=== PATIENT | male | born 1960 | race African-American/Black ===

== ENCOUNTER 2022-06-08 10:35 | Emergency (ER) | payer MEDICARE, MEDICAID, SELFPAY ==
[2022-06-08 10:53] VITALS: BP 138/90; PULSE 72; RESP 12; TEMP 36.6; O2SAT 100
--- NOTE | 2022-06-08 11:01 | ED.DENTAL ---
HPI - Dental/Oral General Chief complaint: Dental/Oral Stated complaint: Mouth Pain Time Seen by Provider: 06/08/22 10:55 Source: patient Mode of arrival: ambulatory Limitations: no limitations History of Present Illness HPI Narrative: patient is a 61-year-old male that had a filling on May 24. Patient states a week after filling jaw started to hurt and has been constant since. denies any better taste in mouth or the tooth itself hurting. call dentist and stated they told him they could get him in August. Went to dentist this morning but was not seen due to not having an appointment. Related Data Home Medications Medication Instructions Recorded Confirmed amlodipine 10 mg tablet 10 mg PO DAILY 06/08/22 06/08/22 hydrochlorothiazide 25 mg tablet 25 mg PO DAILY 06/08/22 06/08/22 Allergies Allergy/AdvReac Type Severity Reaction Status Date / Time lisinopril Allergy Diarrhea Verified 06/08/22 10:56 Review of Systems Review of Systems: All systems reviewed & are unremarkable except as noted in HPI and below Constitutional: Constitutional: Denies body ache(s), Denies fever(s), Denies headache(s), Denies malaise and Denies weakness Eyes: Eyes: Denies loss of vision ENT: Denies otalgia, Reports facial pain (jaw), Denies headache(s), Denies nasal discharge, Denies sinus pain and Denies sore throat Cardiovascular: Cardiovascular: Denies chest pain, Denies irregular heart rhythm and Denies dyspnea Respiratory: Respiratory: Denies dyspnea Gastrointestinal: Gastrointestinal: Denies abdominal pain, Denies melena, Denies hematochezia, Denies diarrhea, Denies nausea and Denies vomiting Musculoskeletal: Musculoskeletal: Denies back pain, Denies myalgias and Denies arthralgias Integumentary/Breasts: Skin/Breast: Denies pruritus and Denies rash Neurologic: Denies headache(s), Denies loss of vision and Denies weakness Psychiatric: Psychiatric: Reports no additional psychiatric complaints PMFSH Comments At time of signature, agree with nursing past medical, surgical, social and family history. There is no relevant family history pertinent to the presenting complaint. Exam Const: General: cooperative, healthy appearing, comfortable, no acute distress and well nourished Nutritional Appearance: well nourished Orientation/consciousness: patient oriented x3 Limitations: no limitations HENMT: Head: normal to inspection, normocephalic and atraumatic Ears: hearing grossly normal bilaterally, external ears normal, TM's normal bilaterally and mastoids normal bilaterally Face/Nose/Sinus: Normal external nose present, normal facial exam and face symmetric Face and sinus: normal facial exam and face symmetric Mouth: Yes Normal oral and palatal mucosa present, Yes lip normal, Yes tongue normal, Yes Normal salivary glands and ducts present and Yes moist mucous membranes Eyes: General: appearance normal, both eyes and all related structures Alignment and Position: alignment normal and position normal Periorbital: periorbital findings normal Eyelids: eyelids normal Pupils: Equal, round and reactive pupils present EOM: EOMs intact bilaterally Neck: Neck: normal visual inspection, full ROM, no lymphadenopathy and supple Chest: Chest palpation & inspection: normal inspection of the chest Resp: Effort & Inspection: normal respiratory effort and able to speak in complete sentences Auscultation: clear to auscultation bilaterally Cardio: Rate: regular rate Rhythm: regular rhythm Heart sounds: S1 normal heart sound present and S2 normal heart sound present GI: Inspection: normal to inspection Skin: General skin exam: normal color and no rashes or lesions noted Neuro: General: patient oriented x3 and moves all extremities Cranial nerves: Yes Equal, round and reactive pupils present Speech: normal speech Gait exam (Neuro): Normal gait present Extrem: General: normal to inspection, full ROM and no edema Psych: Appearance: grossly
== END 2022-06-08 11:08 | disposition home or self-care (01) ==
PROVIDERS: Emergency Provider Nurse Practitioner Family; PCP Emergency Medicine
DX: R68.84 Jaw pain (principal)
CPT/HCPCS: 99203; G0463

== ENCOUNTER → 2022-07-22 14:31 | Outpatient (CLI) | payer MEDICARE, MEDICAID, SELFPAY ==
--- NOTE | ~2022-07-22 | XR_ITS ---
EXAM: XR cervical spine 4-5V DATE: 07/22/2022 15:02 HISTORY: tingling fingers and feet for years . COMPARISON: None available. FINDINGS: Craniocervical association and atlantoaxial joint are aligned. No prevertebral soft tissue swelling. Vertebral bodies are aligned. Vertebral body heights are maintained. Normal disc spaces. N ormal facets and posterior elements. IMPRESSION: Normal cervical spine radiograph findings. Reviewed, dictated and finalized at location K.
== END ==
PROVIDERS: PCP Emergency Medicine; Visit Provider Emergency Medicine
DX: R20.2 Paresthesia of skin (principal)
CPT/HCPCS: 72050

== ENCOUNTER 2022-07-30 14:26 | Outpatient (CLI) | payer MEDICARE, MEDICAID, SELFPAY ==
[2022-07-30 14:56] LABS: Basophils Percent Auto 0.4 % (0.2-1.2); Eosinophils Absolute Auto 0.1 K/mm3 (0-0.3); Eosinophils Percent Auto 1.6 % (0-4.4); Hematocrit 46.5 % (42.0-52.0); Hemoglobin 15.7 g/dL (14.0-18.0); Immature Granulocyte Absolute 0.03 K/mm3 (0.00-0.031); Immature Granulocyte Percent A 0.4 % (0-0.5); Lymphocytes Absolute Auto 2.59 K/mm3 (0.9-3.2); Lymphocytes Percent Auto 30.9 % (18.3-44.2); Mean Corpuscular HGB Conc 33.8 g/dl (32-36); Mean Corpuscular Hemoglobin 27.6 pg (26-34); Mean Corpuscular Volume 81.7 fl (80-100); Monocytes Absolute Auto 0.6 K/mm3 (0.1-0.6); Monocytes Percent Auto 6.6 % (2.6-8.5); Neutrophils Absolute Auto 5.1 K/mm3 (1.3-6.7); Neutrophils Percent Auto 60.1 % (45.5-73.1); Platelet Count Result 325 k/mm3 (150-375); Red Blood Count 5.69 M/mm3 (4.6-6.20); Red Cell Distribution Width 14.2 % (11.5-14.5); White Blood Count 8.4 K/mm3 (4.5-10.0)
[2022-07-30 17:05] LABS: Alanine Aminotransferase 49 U/L (6-50); Alkaline Phosphatase 81 U/L (38-126); Anion Gap 10 mmol/L (8-16); Aspartate Amino Transferase 42 U/L (17-59); Bilirubin,Total 1.1 mg/dL (0.2-1.3); Blood Urea Nitrogen 11 mg/dL (9-20); Calcium 9.5 mg/dL (8.4-10.2); Carbon Dioxide 28 mmol/L (22-30); Chloride 100 mmol/L (98-107); Estimated Glomerular Filt Rate > 60; Glucose 100 mg/dL (65-110); Lactate Dehydrogenase 234 U/L (120-246); Potassium 3.2 mmol/L (3.4-5.0); Sodium 138 mmol/L (137-145)
== END 2022-07-30 14:27 | disposition home or self-care (01) ==
LOC: ANHLAB 14:29
PROVIDERS: PCP Emergency Medicine; Visit Provider Internal Medicine Hematology & Oncology
DX: C84.9 Mature T/NK-cell lymphomas, unspecified (principal)
CPT/HCPCS: 36415; 80053; 83615; 85025

== ENCOUNTER 2022-08-08 09:12 | Outpatient (CLI) | payer MEDICARE, MEDICAID, SELFPAY ==
--- NOTE | ~2022-08-08 | PE_ITS ---
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 TECHNIQUE: Blood glucose level was 115 mg/dL. 9.223 mCi of 18-fluorodeoxyglucose (18-FDG) was adminis tered i.v. Low dose computed tomography (CT) images were acquired from the base of the brain to the p roximal thighs for attenuation correction and anatomic localization. Automated exposure control was e mployed. Dose-length product (DLP) was 489 mGy-cm. Positron emission tomography (PET) images were acq uired in the same distribution. COMPARISON: None FINDINGS: Head/neck: There are no pathologically enlarged lymph nodes. Chest: A calcified left lung nodule and calcified left hilar lymph nodes are consistent with old gran ulomatous disease. No pleural effusion. The heart size is normal. No pericardial effusion. There is m ild bilateral gynecomastia. Abdomen/pelvis/proximal thighs: There is diffuse hepatic steatosis. The gallbladder, spleen, pancreas , adrenal glands, and kidneys are normal. There is no urolithiasis. Stool distends the rectosigmoid. There is a large volume of stool in the colon. The appendix is normal. There is a ventral hernia cont aining nonobstructed small bowel. There are no pathologically enlarged lymph nodes. There is no free intraperitoneal fluid. There is mild lumbar spondylosis. IMPRESSION: 1. No evidence of lymphoma. 2. Umbilical hernia containing nonobstructed small bowel. Reviewed, dictated and finalized at location A.
[2022-08-08 09:45] LABS: Glucose Point of Care 115 mg/dl (65-105)
== END 2022-08-08 09:13 | disposition home or self-care (01) ==
PROVIDERS: PCP Emergency Medicine; Visit Provider Internal Medicine Hematology & Oncology
DX: C84.49 Peripheral T-cell lymphoma, not elsewhere classified, extranodal and solid organ sites (principal)
CPT/HCPCS: 78815; A9552

== ENCOUNTER 2022-12-11 12:50 | Outpatient (CLI) | payer MEDICARE, MEDICAID, SELFPAY ==
--- NOTE | 2022-12-11 14:45 | NEURO_ITS ---
Impression: # Complains of numbness in all extremities. History of lymphoma treatment 3 years ago with chemotherapy. # No generalized neuropathy. # No Carpal Tunnel Syndrome. # Right ulnar neuropathy across the elbow. # Normal needle/EMG. # Clinical correlation recommended. problem additionally couldbe related to underlying small fiber neuropathy. Nerve Conduction Studies Anti Sensory Summary Table Stim Site NR Peak (ms) P-T Amp (?V) Site1 Site2 Delta-P (ms) Dist (cm) Vinod (m/s) Left Median Anti Sensory (2-3nd Digit) Wrist 2.8 73.4 Wrist 2-3nd Digit 2.8 14.0 50 Wrist 3.0 72.0 Wrist 2-3nd Digit 2.8 14.0 50 Right Median Anti Sensory (2-3nd Digit) Wrist 3.1 74.9 Wrist 2-3nd Digit 3.1 14.0 45 Wrist 3.1 83.3 Wrist 2-3nd Digit 3.1 14.0 45 Left Radial Anti Sensory (Base 1st Digit) Wrist 2.0 25.8 Wrist Base 1st Digit 2.0 0.0 Right Radial Anti Sensory (Base 1st Digit) Wrist 2.2 10.7 Wrist Base 1st Digit 2.2 0.0 Left Sup Fibular Anti Sensory (Ant Lat Mall) 14 cm 3.6 7.7 14 cm Ant Lat Mall 3.6 16.0 44 Right Sup Fibular Anti Sensory (Ant Lat Mall) 14 cm 3.3 19.3 14 cm Ant Lat Mall 3.3 16.0 48 Left Sural Anti Sensory (Lat Mall) Calf 3.3 17.0 Calf Lat Mall 3.3 16.0 48 Right Sural Anti Sensory (Lat Mall) Calf 3.1 4.9 Calf Lat Mall 3.1 16.0 52 Left Ulnar Anti Sensory (5th Digit) Wrist 2.7 50.7 Wrist 5th Digit 2.7 14.0 52 Right Ulnar Anti Sensory (5th Digit) Wrist 2.8 41.7 Wrist 5th Digit 2.8 14.0 50 Motor Summary Table Stim Site NR Onset (ms) O-P Amp (mV) Site1 Site2 Delta-0 (ms) Dist (cm) Vinod (m/s) Left Median Motor (Abd Poll Brev) Wrist 3.5 4.4 Elbow Wrist 5.5 30.0 55 Elbow 9.0 2.2 Right Median Motor (Abd Poll Brev) Wrist 3.0 6.3 Elbow Wrist 5.3 28.0 53 Elbow 8.3 4.4 Left Peroneal Motor (Vastus Med) Ankle 4.1 2.8 Popit Ankle 9.3 44.0 47 Popit 13.4 2.8 Right Peroneal Motor (Vastus Med) Ankle 4.1 7.6 Popit Ankle 8.2 41.0 50 Popit 12.3 6.5 Left Tibial Motor (Abd Brooks Brev) Ankle 4.4 9.2 Knee Ankle 9.2 44.0 48 Knee 13.6 7.7 Right Tibial Motor (Abd Brooks Brev) Ankle 4.4 9.4 Knee Ankle 9.2 44.0 48 Knee 13.6 7.2 Left Ulnar Motor (Abd Dig Minimi) Wrist 2.5 8.9 A Elbow Wrist 5.9 32.0 54 A Elbow 8.4 8.1 Right Ulnar Motor (Abd Dig Minimi) Wrist 2.7 9.1 A Elbow Wrist 6.3 31.0 49 A Elbow 9.0 7.8 B Elbow Wrist 3.7 20.0 54 B Elbow 6.4 5.5 F Wave Studies NR F-Lat (ms) L-R F-Lat (ms) Left Median (Mrkrs) (Abd Poll Brev) 27.60 0.51 Right Median (Mrkrs) (Abd Poll Brev) 28.11 0.51 Left Peroneal (Mrkrs) (EDB) 52.24 0.43 Right Peroneal (Mrkrs) (EDB) 51.80 0.43 Left Tibial (Mrkrs) (Abd Hallucis) 52.23 0.32 Right Tibial (Mrkrs) (Abd Hallucis) 52.55 0.32 Left Ulnar (Mrkrs) (Abd Dig Min) 28.95 0.08 Right Ulnar (Mrkrs) (Abd Dig Min) 29.03 0.08 EMG Side Muscle Nerve Root Ins Act Fibs Amp Dur Recrt Comment Right 1stDorInt Ulnar C8-T1 Nml Nml Nml Nml Nml Right Ext Indicis Radial (Post Int) C7-8 Nml Nml Nml Nml Nml Right Ext Digitorum Radial (Post Int) C7-8 Nml Nml Nml Nml Nml Right BrachioRad Radial C5-6 Nml Nml Nml Nml Nml Right Pronato
== END 2022-12-11 12:51 | disposition home or self-care (01) ==
LOC: ANHNEURO 12:51
PROVIDERS: PCP Emergency Medicine; Visit Provider Student in an Organized Health Care Education/Training Program
DX: G62.9 Polyneuropathy, unspecified (principal); G56.21 Lesion of ulnar nerve, right upper limb
CPT/HCPCS: 95886; 95913

== ENCOUNTER 2023-02-17 13:07 | Outpatient (CLI) | payer MEDICARE, MEDICAID, SELFPAY ==
[2023-02-17 13:24] LABS: Basophils Percent Auto 0.4 % (0.2-1.2); Eosinophils Absolute Auto 0.2 K/mm3 (0-0.3); Eosinophils Percent Auto 2.5 % (0-4.4); Hematocrit 44.1 % (42.0-52.0); Hemoglobin 14.9 g/dL (14.0-18.0); Immature Granulocyte Absolute 0.03 K/mm3 (0.00-0.031); Immature Granulocyte Percent A 0.4 % (0-0.5); Lymphocytes Absolute Auto 3.05 K/mm3 (0.9-3.2); Lymphocytes Percent Auto 40.1 % (18.3-44.2); Mean Corpuscular HGB Conc 33.8 g/dl (32-36); Mean Corpuscular Hemoglobin 27.9 pg (26-34); Mean Corpuscular Volume 82.4 fl (80-100); Mean Platelet Volume 8.9 fl (7.4-10.4); Monocytes Absolute Auto 0.6 K/mm3 (0.1-0.6); Neutrophils Absolute Auto 3.7 K/mm3 (1.3-6.7); Neutrophils Percent Auto 48.6 % (45.5-73.1); Platelet Count Result 292 k/mm3 (150-375); Red Blood Count 5.35 M/mm3 (4.6-6.20); Red Cell Distribution Width 14.6 % (11.5-14.5); White Blood Count 7.6 K/mm3 (4.5-10.0)
[2023-02-17 13:28] LABS: Blood Urea Nitrogen 12 mg/dL (8-26); Carbon Dioxide 27 mmol/L (22-30); Chloride 102 mmol/L (98-109); Estimated Glomerular Filt Rate > 60; Glucose 121 mg/dL (70-105); Ionized Calcium (POC) 1.19 mmol/L (1.11-1.31); Potassium 3.5 mmol/L (3.5-4.9); Sodium 142 mmol/L (138-146)
[2023-02-17 17:01] LABS: Alanine Aminotransferase 34 U/L (6-50); Albumin Level 4.6 g/dL (3.5-5.1); Alkaline Phosphatase 66 U/L (38-126); Anion Gap 11 mmol/L (8-16); Aspartate Amino Transferase 39 U/L (17-59); Bilirubin,Total 0.9 mg/dL (0.2-1.3); Blood Urea Nitrogen 13 mg/dL (9-20); Calcium 9.1 mg/dL (8.4-10.2); Carbon Dioxide 24 mmol/L (22-30); Chloride 103 mmol/L (98-107); Estimated Glomerular Filt Rate > 60; Glucose 119 mg/dL (65-110); Lactate Dehydrogenase 203 U/L (120-246); Potassium 3.6 mmol/L (3.4-5.0); Sodium 138 mmol/L (137-145)
== END 2023-02-17 13:08 | disposition home or self-care (01) ==
LOC: ANHLAB 13:10
PROVIDERS: PCP Emergency Medicine; Visit Provider Internal Medicine Hematology & Oncology
DX: C84.9 Mature T/NK-cell lymphomas, unspecified (principal)
CPT/HCPCS: 36415; 80047; 80053; 83615; 85025

== ENCOUNTER 2023-11-18 12:36 | Outpatient (CLI) | payer MEDICARE, MEDICAID, SELFPAY ==
[2023-11-18 13:16] LABS: Basophils Percent Auto 0.4 % (0.2-1.2); Eosinophils Absolute Auto 0.2 K/mm3 (0-0.3); Eosinophils Percent Auto 3.2 % (0-4.4); Hematocrit 45.7 % (42.0-52.0); Hemoglobin 15.4 g/dL (14.0-18.0); Immature Granulocyte Absolute 0.02 K/mm3 (0.00-0.031); Immature Granulocyte Percent A 0.3 % (0-0.5); Lymphocytes Absolute Auto 3.17 K/mm3 (0.9-3.2); Lymphocytes Percent Auto 41.9 % (18.3-44.2); Mean Corpuscular HGB Conc 33.7 g/dl (32-36); Mean Corpuscular Hemoglobin 27.8 pg (26-34); Mean Corpuscular Volume 82.6 fl (80-100); Mean Platelet Volume 8.8 fl (7.4-10.4); Monocytes Absolute Auto 0.6 K/mm3 (0.1-0.6); Monocytes Percent Auto 8.5 % (2.6-8.5); Neutrophils Absolute Auto 3.5 K/mm3 (1.3-6.7); Neutrophils Percent Auto 45.7 % (45.5-73.1); Platelet Count Result 287 k/mm3 (150-375); Red Blood Count 5.53 M/mm3 (4.6-6.20); Red Cell Distribution Width 14.2 % (11.5-14.5); White Blood Count 7.6 K/mm3 (4.5-10.0)
[2023-11-18 13:20] LABS: Blood Urea Nitrogen 12 mg/dL (8-26); Carbon Dioxide 25 mmol/L (22-30); Chloride 101 mmol/L (98-109); Estimated Glomerular Filt Rate > 60; Glucose 141 mg/dL (70-105); Ionized Calcium (POC) 1.17 mmol/L (1.11-1.31); Potassium 3.3 mmol/L (3.5-4.9); Sodium 140 mmol/L (138-146)
[2023-11-18 16:38] LABS: Alanine Aminotransferase 29 U/L (6-50); Albumin Level 4.7 g/dL (3.5-5.1); Alkaline Phosphatase 72 U/L (38-126); Anion Gap 12 mmol/L (4-12); Aspartate Amino Transferase 30 U/L (17-59); Bilirubin,Total 0.7 mg/dL (0.2-1.3); Blood Urea Nitrogen 13 mg/dL (9-20); Calcium 8.8 mg/dL (8.4-10.2); Carbon Dioxide 26 mmol/L (22-30); Chloride 99 mmol/L (98-107); Estimated Glomerular Filt Rate > 60; Glucose 133 mg/dL (65-110); Lactate Dehydrogenase 198 U/L (120-246); Potassium 3.4 mmol/L (3.4-5.0); Sodium 137 mmol/L (137-145)
== END 2023-11-18 12:37 | disposition home or self-care (01) ==
LOC: ANHLAB 12:40
PROVIDERS: PCP Emergency Medicine; Visit Provider Internal Medicine Hematology & Oncology
DX: C84.9 Mature T/NK-cell lymphomas, unspecified (principal)
CPT/HCPCS: 36415; 80047; 80053; 83615; 85025

== ENCOUNTER 2024-11-17 14:34 | Outpatient (CLI) | payer MEDICARE, MEDICAID, SELFPAY ==
--- OUTSIDE RECORDS SUMMARY | 2024-11-17 14:39 | XMS_ITS | Encounter Summary ---
Author Organization [facility] Address [address] [place] [address] Phone Care Team Providers Care Regional Operations Manager Name Role Phone Luis Armando Valdez MD Primary Care Provider [phone] Encounter Details Date Type Department Care Team (Late st Contact Info) Description 11/24/2019 Telephone [facility] [address] [place] [address] Miguel Crespo MD [address] [place] [address] Social History Tobacco Use Types Packs/Day Years Used Date Smoking Tobacco: Never Smokeless Tobacco: Never Alcohol Use Standard Drinks/Week Comments Never 0 (1 standard drink = 0.6 oz pur e alcohol) AUDIT-C Answer Date Recorded Q1: How often do you have a drink containing alc ohol? Never 11/10/2019 Average Number of Drinks Not on file 020 Frequency of Binge Drinking Not on file 10/22 PHQ-2 Answer Date Recorded PHQ-2 Score 0 11/10/2019 Education Answer Date Recorded What is the highest level of school you have completed or the highest degree you have received? 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 No / Unsure 11/22/2019 7:37 AM CDT documented as of this encounter Miscellaneous Notes * Telephone Encounter - Irais Wilson - 11/24/2019 10:48 AM CDT FAXED RECORDS TO [facility] FAX # [phone] PHONE # [phone] INFORMED WERE STILL WAITING ON BMBX RESULTS PROC WAS JUST DONE ON 11/21-ALSO FAXED REQUEST FOR PATH TO [facility] FAX # [phone] documented in this encounter Plan of Treatment Not on file documented as of this encounter Visit Diagnoses Not on filedocumented in this encounter Additional Health Concerns Assessment Noted Time PHQ-9 Depression Total Score: 0 11/17/19 20 12:04 PM CDT documented as of this encounter Care Teams Regional Operations Manager Relationship Specialty Start Date End Date Luis Armando Valdez MD PCP - General Colon & Rectal Surgery 11/02/19 documented as of this encounter
--- OUTSIDE RECORDS SUMMARY | 2024-11-17 14:39 | XMS_ITS ---
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 Past Treatment and Therapy Plans ONCOLOGY SECONDARY SUPPORTIVE CARE Plan Name Start Date Discontinue Date Treatment Medications Discontinue Reason Plan Provider Cycles SUPPORT - HYDRATION NO ADDITIVES - [facility] 02/28/2020 06/26/2021 No medications scheduled. Plan Clean Up Miguel Crespo MD 2 of 2 cycles started ONCOLOGY SUPPORTIVE CARE Plan Name Start Date Discontinue Date Treatment Medications Discontinue Reason Plan Provider Cycles SUPPORT - IRON PREPARATION / INFUSION - [facility] 0 06/26/2021 No medications scheduled. Plan Clean Up Miguel Crespo MD 1 of 1 cycle started ONCOLOGY TREATMENT Plan Name Start Date Discontinue Date Treatment Medications Discontinue Reason Plan Provider Cycles NON-HODG KIN LYMPHOMA - CHOEP-21 - [facility] 0 06/26/2021 cyclophosphamide with mesna (CYTOXAN) chemo infusion using solrDOXOrubicin (ADRIAMYCIN)etoposide chemo infusionvinCRIStine (ONCOVIN) chemo infusion Plan Clean Up Miguel Crespo MD 4 of 6 cycles started Lifetime Dose Tracking * Chemical Lifetime Dose Automatic Entry Manual Entr y Doxorubicin 196.962 mg/m2 (388 mg) 196.962 mg/m2 (388 mg) 0 mg/m2 (0 mg)
--- OUTSIDE RECORDS SUMMARY | 2024-11-17 14:39 | XMS_ITS | Encounter Summary ---
Author Organization [facility] Address [address] [place] [address] Phone Care Team Providers Care Real Estate Analyst Name Role Phone Luis Armando Valdez MD Primary Care Provider [phone] Encounter Details Date Type Department Care Team (Late st Contact Info) Description 01/23/2021 Telephone [facility] [address] [place] [address] Miguel Crespo MD [address] [place] [address] Social History Tobacco Use Types [...] on file 10/22 PHQ-2 Answer Date Recorded Total Score - Questions 1-9 1 02/21 Education Answer Date Recorded What is the highest level of school you have completed or the highest degree you have received? 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 IGERATED CARGO CLERK * Telephone Encounter - Hyun Duncan - 01/23/2021 1:03 PM CDT Left message with family member to have Taalik call the office to get scheduled. documented in this encounter Plan of Treatment Not on file documented as of this encounter Visit Diagnoses Not on filedocumented in this encounter Additional Health Concerns Assessment Noted Time PHQ-9 Depression Total Score: 1 03/06/20 20 9:12 AM REFRIGERATED CARGO CLERK documented as of this encounter Care Teams Real Estate Analyst Relationship Specialty Start Date End Date Luis Armando Valdez MD PCP - General Colon & Rectal Surgery 11/02/19 documented as of this encounter
--- OUTSIDE RECORDS SUMMARY | 2024-11-17 14:39 | XMS_ITS | Encounter Summary ---
Author Organization [facility] Address [address] [place] [address] Care Team Providers Care Aircraft Landing Gear Inspector Name Role Phone Miguel Crespo MD Unavailable [phone] Miguel Ross MD Unavailable [phone] Michael Duran MD Unavailable [phone] Patrice Jackson MD Unavailable [phone] Jl Cooper MD Unavailable [phone] Mulu Cardenas PharmD Unavailable Unavaila Jimmy Moura PharmD Unavailable Unavailab Bambi Emery RN Unavailable Unavailable Rosi Saldana RN Unavailable Unavailab Mely Carlos Unavailable Nina Joanna Billingsley CERTIFIED LEGAL INVESTIGATOR-MACHINE PACKAGE SEALER Unavailable [phone] Concha Bruner CERTIFIED LEGAL INVESTIGATOR-MACHINE PACKAGE SEALER Unavailable [phone] Leslee Rodriguez RN Unavailable Unavailable Naida Iverson RN Unavailable Unavailable Patrizia Solares Unavailable Unavailable Encounter Details Date Type Department Care Team (Late st Contact Info) Description 12/16/2019 Lab Requisition [facility] [address] [place] [address] Miguel Ross MD [address] [place] [address] [address] [place] [address] Illness, unspecified Social History Tobacco Use Types Packs/Day Years Used Date Smoking Tobacco: Never Assessed Sex and Gender Information Value Date Recorded Sex Assigned at Not on file Legal Sex Male 1:59 PM CDT Gender Identity Not on file Sexual Orientation Not on file documented as of this encounter Plan of Treatment Not on file documented as of this encounter Procedures Procedure Name Priority Date/Time Associated Diagnosis Comments PATH CONSULT ON REFERRED CASE Routine 12/16/2019 11:28 AM CDT Illness, unspecified documented in this encounter Results * PATH CONSULT ON REFERRED CASE (12/16/2019 11:28 AM CDT) Final Diagnosis Bladder, tumor attached to bladder wall, resection (A) (OSC: [id number], 10/21/2019): - 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 - No urothelium present in the provided sections. 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 Small intestine, new margin of tumor on small bowel, resection (C): - No pathologic diagnosis. 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 12/16/2019 5:17 PM CDT [facility] at 1717 CDT Microscopic Description and Comment Microscopic examination of the bladder tumor (A) shows sheets of monotonous intermediate size lymphocytes with open chromatin and prominent nucleoli. There is brisk mitotic activity. The lymphocytes infiltrate the muscularis propria (A4). No urothelium is present. Of the provided immunohistochemical stains performed at [facility] pathology, the tumor is positive for CD3, CD20, and LCA. Immunostains for CD5 and pankeratin of the same institution are negative. Of the provided immunohistochemical stains performed at [facility] in [facility], the tumor is positive for CD56, CD8, CD7, TCR delta, granzyme B, and TIA. Immunostains for CD2, CD5, CD30, PAX-5, TCR BF-1, and CD4 that were also performed at [facility] are negative. The provided EBV TEENA from [facility] is negative. Sections of the tumor small bowel (B) show the same tumor in part A to involve the small intestine. There are portions of the tumor that show necrosis. No mucosa is present in the sections of the tumor. Serosal involvement by tumor cannot be determined from the provided slides. The random section of small intestine (B5) shows mucosal hemorrhage, edema, and ulceration. The surgical resection margins are uninvolved by tumor. No tumor is present in the new margin of tumor on small bowel (C). Sections of the sigmoid colon tumor (D) show involvement by the same tumor in part A. The tumor appears to be invading from the serosa through the muscularis propria. Submucosal and mucosal involvement is not identified in the provided sections. In summary, there is a tumor that appears to be arising from the small intestine that extends to adjacent organs. This tumor is a gamma-delta T-cell lymphoma of cytotoxic immunophenotype that shows aberrant expression of CD20. 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 Clinical correlation is advised. GRACIA/AVILA 12/16/2019 5:17 PM [facility] Clinical History Small bowel tumor. 12/16/2019 5:17 PM [facility] Materials Received Received are 50 slides and 2 blocks (A2, A3) labeled [id number] along with a copy of the outside pathology report. The materials originate from [facility], [address] [place] [address].. All original materials are returned to the referring institution, along with a copy of our final report. 12/16/2019 5:17 PM [facility] Disclaimer The performance characteristics of all immunohistochemical and indirect immunofluorescence stains (if any) cited in this report were determined by the Histopathology Laboratory of [facility]. Some of these tests were developed by our own laboratory and have not been cleared or approved by the US Food and Drug Administration. The FDA does not require this test to go through premarket FDA review. These tests are used for clinical purposes. They should not be regarded as investigational or for research. This laboratory is certified under the Clinical Laboratory Improvement Amendments (CLIA) as qualified to perform high complexity clinical laboratory testing. This case has been personally reviewed and interpreted by the attending (teaching) pathologist. 12/16/2019 5:17 PM CDT [facility] Case Report Surgical Pathology Report Case: [id number] Authorizing Provider: Miguel Ross MD Collected: 12/16/2019 11:28 AM Ordering Location: [facility] Received: 12/16/2019 11:28 AM Pathologist: Maria Teresa Espinosa MD Specimen: Slide Consultation, OSC: [id number] 12/16/2019 5:17 PM CDT [facility] Embedded Images 12/16/2019 5:17 PM CDT [facility] Pathology/Cytolo gy SURGICAL PATHOLOGY CONSULTATION AND REPORT ON REFERRED SLIDES PREPARED ELSEWHERE / Unknown 12/16/2019 11:28 AM CDT 12/16/2019 11:28 AM CDT us Miguel Ross MD LAB - PATHOLOGY/CYTOLOGY O RDERABLES Final Result [facility] [address] [phone] documented in this encounter Visit Diagnoses Diagnosis Illness, unspecified documented in this encounter Care Teams Aircraft Landing Gear Inspector Relationship Specialty Start Date End Date Miguel Crespo MD Hematology and Oncology 12/02/19 Miguel Ross MD Hematology and Oncology 12/02/19 Michael Duran MD [address] DIV OF HEMATOLOGY & [place] [address] Hematology and Oncology 12/02/19 Patrice Jackson MD [address] DIV OF HEMATOLOGY & [place] [address] Hematology and Oncology 12/02/19 Jl Cooper MD [address] DIV OF HEMATOLOGY & [place] [address] Hematology and Oncology 12/02/19 Mulu Cardenas, PharmD 12/02/19 Jimmy Medina, PharmD Pharmacist 12/02/19 Bambi Juan RN 12/02/19 Rosi Saldana RN 12/02/19 Mely Monahan 12/02/19 Joanna Cook APRN-MACHINE PACKAGE SEALER [address] DIV OF HEMATOLOGY & [place] [address] Nurse Practitioner 12/02/19 Concha Bruner APRN-MACHINE PACKAGE SEALER [address] DIV OF HEMATOLOGY & [place] [address] Nurse Practitioner Family 12/02/19 Leslee Rodriguez, RN 12/02/19 Naida Iverson RN Registered Nurse 12/02/19 Patrizia Solares CSW Ob Scrub Tech 12/02/19 documented as of this encounter
--- OUTSIDE RECORDS SUMMARY | 2024-11-17 14:39 | XMS_ITS | Encounter Summary ---
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 No / Unsure 12/27/2019 8:05 AM CDT documented as of this encounter Plan of Treatment Not on file documented as of this encounter Visit Diagnoses Not on filedocumented in this encounter Additional Health Concerns Assessment Noted Time PHQ-9 Depression Total Score: 0 12/27/19 8:26 AM CDT documented as of this encounter Care Teams Furniture Mechanic Relationship Specialty Start Date End Date Luis Armando Valdez MD PCP - General Colon & Rectal Surgery 11/02/19 documented as of this encounter
--- OUTSIDE RECORDS SUMMARY | 2024-11-17 14:39 | XMS_ITS | Encounter Summary ---
Author Organization [facility] Address [address] [place] [address] Care Team Providers Care Transmission Specialist Name Role Phone Miguel Crespo MD Unavailable [phone] Miguel Ross MD Unavailable [phone] Michael Duran MD Unavailable [phone] Patrice Jackson MD Unavailable Jl Cooper MD Unavailable [phone] Mulu Cardenas PharmD Unavailable Unavaila Jimmy Moura PharmD Unavailable Unavailab Bambi Emery RN Unavailable Unavailable Rosi Saldana RN Unavailable Unavailab Mely Carlos Unavailable Nina Joanna Billingsely TOURS HOSTESS-DIRECTOR EXPERIMENTAL MEDICINE Unavailable [phone] Concha Bruner TOURS HOSTESS-DIRECTOR EXPERIMENTAL MEDICINE Unavailable [phone] Leslee Rodriguez RN Unavailable Unavailable Naida Iverson RN Unavailable Unavailable Patrizia Solares Unavailable Unavailable Encounter Details Date Type Department Care Team (Late st Contact Info) Description 12/07/2019 Lab Requisition [facility] [address] [place] [address] Miguel Ross MD [address] [place] [address] [address] [place] [address] Illness, unspecified Social History Tobacco [...] Comments PATH CONSULT ON REFERRED CASE Routine 12/07/2019 11:16 AM CDT Illness, unspecified documented in this encounter Results * PATH CONSULT ON REFERRED CASE (12/07/2019 11:16 AM CDT) Final Diagnosis Bone marrow, iliac crest, core biopsy, clot and aspirate smears (OSC: [id number], 11/22/2019): - Normocellular marrow with maturing trilineage hematopoiesis. - No morphologic evidence of lymphoma or high-grade myeloid neoplasm. - See description. 12/08/2019 8:32 AM CDT [facility] at 0832 CDT Microscopic Description and Comment Bone marrow aspirate: Differential count (500 cells): 0.8% blasts, 48.2% maturing myeloid precursors, 38.8% erythroid progenitors, 0.2% monocytes, 5.2% eosinophils, 6% lymphocytes, 0.8% plasma cells. Specimen quality: Adequate Spicules: Present Trilineage Hematopoiesis: Adequate Myeloid:Erythroid ratio: 1.4:1. Myeloid Maturation: Normal Erythroid Maturation: Normal Megakaryocyte morphology: Occasional hypolobated forms The touch imprint shows similar morphologic features. Bone marrow core: Specimen quality: Borderline adequate with 0.9 cm of evaluable marrow Cellularity: 40-50% Trilineage Hematopoiesis: Present Myeloid to Erythroid ratio: Decreased Myeloid maturation and localization: Normal Erythroid maturation and localization: Normal Megakaryocyte number: Normal Megakaryocyte distribution: Normal Lymphoid aggregates: Absent Bone trabeculae: Normal Blood vessels: Normal Clot section marrow particles: Present Clot section morphology: Similar to core biopsy Per report, special stains (performed and interpreted at [facility]) show the following: Reticulin: Scattered thin linear reticulin fibers with no intra-or sections, corresponding to normal marrow (MF-0). Iron: Adequate storage iron is seen. Ring sideroblasts are not present. Per report, flow cytometric analysis of the bone marrow aspirate (performed and interpreted at [facility]) shows no evidence of a lymphoproliferative disorder. The B cells (2%) are polytypic with normal kappa to lambda ratio. T cells (21%) show no deletion or abnormal dim expression of kyle T-cell antigens on significant subset of cells. The CD4: CD8 ratio is 0.6:1. Per report, chromosome analysis (performed and interpreted at [facility]) shows a normal male karyotype in 20 metaphase cells analyzed: 46,XY[20]. 12/08/2019 8:32 AM [facility] Clinical History B-cell lymphoma 12/08/2019 8:32 AM [facility] Materials Received Received are 4 slide(s) labeled [id number] along with a copy of the outside pathology report. The materials originate from [email or web address] [email or web address], [address] [place] [address]. All original materials are returned to the referring institution, along with a copy of our final report. 12/08/2019 8:32 AM [facility] AP Comment Overall, the bone marrow specimen is normocellular for age with maturing trilineage hematopoiesis and no morphologic evidence of lymphoma, a high-grade myeloid neoplasm, or significant dyspoiesis. Per report, concurrent flow cytometric analysis and chromosome analysis corroborates the diagnosis. 12/08/2019 8:32 AM [facility] Disclaimer The performance characteristics of all immunohistochemical and indirect immunofluorescence stains (if any) cited in this report were determined by the Histopathology Laboratory of [facility]. Some of these tests were developed by [...] and interpreted by the attending (teaching) pathologist. 12/08/2019 8:32 AM [facility] Case Report Surgical Pathology Report Case: [id number] Authorizing Provider: Miguel Ross MD Collected: 12/07/2019 11:16 AM Ordering Location: [facility] Received: 12/07/2019 11:16 AM Pathologist: Lesly Wade Mai, DO Specimen: Slide Consultation, OSC: [id number] 12/08/2019 8:32 AM CDT [facility] Embedded Images 12/08/2019 8:32 AM CDT [facility] Pathology/Cytolo gy SURGICAL PATHOLOGY CONSULTATION AND REPORT ON REFERRED SLIDES PREPARED ELSEWHERE / Unknown 12/07/2019 11:16 AM CDT 12/07/2019 11:16 AM CDT us Miguel Ross MD LAB - PATHOLOGY/CYTOLOGY O RDERABLES Final Result [facility] [address] [place] [address], [facility] [phone] documented in this encounter Visit Diagnoses Diagnosis Illness, unspecified documented in this encounter Care Teams Transmission Specialist Relationship Specialty Start Date End Date Miguel Crespo MD Hematology and Oncology 12/02/19 Miguel Ross MD Hematology and Oncology 12/02/19 Michael Duran MD [address] OF HEMATOLOGY & [place] [address] Hematology and Oncology 12/02/19 Patrice Jackson MD [address] DIV OF HEMATOLOGY & [place] [address] Hematology and Oncology 12/02/19 Jl Cooper MD [address] DIV OF HEMATOLOGY & [place] [address] Hematology and Oncology 12/02/19 Mulu Cardenas, PharmD 12/02/19 Jimmy Medina, PharmD Pharmacist 12/02/19 Bambi Juan, RN 12/02/19 Rosi Saldana RN 12/02/19 Mely Monahan 12/02/19 Joanna Cook APRN-DIRECTOR EXPERIMENTAL MEDICINE [facility] [facility] OF HEMATOLOGY [place] [address] Nurse Practitioner 12/02/19 Concha Bruner APRN-DIRECTOR EXPERIMENTAL MEDICINE [address] [facility] OF [facility] [place] [address] Nurse Practitioner Family 12/02/19 Leslee Rodriguez RN 12/02/19 Naida Iverson RN Registered Nurse 12/02/19 Patrizia Solares, WILBUR Net Programmer 12/02/19 documented as of this encounter
--- OUTSIDE RECORDS SUMMARY | 2024-11-17 14:39 | XMS_ITS | Encounter Summary ---
Author Organization [facility] Address [address] [place] [address] Care Team Providers Care Medical Device Sales Name Role Phone Miguel Crespo MD Unavailable [phone] Sophia Braun MD Primary Care Provider [phone] Encounter Details Date Type Department Care Team (Late st Contact Info) Description 04/21/2023 Instab[employer] Message Enc [facility] Family & Internal Medicine [address] [address] [employer], [facility] Provider Due for routine follow up appt Social History Tobacco Use Types Packs/Day Years Used Date Smoking Tobacco: Never Smokeless Tobacco: Never Alcohol Use Standard Drinks/Week Comments No 0 (1 standard drink = 0.6 oz pur e alcohol) AUDIT-C Answer Date Recorded Frequency of Alcohol Consumption Never 07/10/2018 Average Number of Drinks Not on file 019 Frequency of Binge Drinking Not on file 06/22 PHQ-2 Answer Date Recorded PHQ-2 Score - If the patient scores above 3, please move on to questions 3-9 0 11/07/2021 Sex and Gender Information Value Date Recorded Sex Assigned at Not on file Legal Sex Male 7:03 PM CDT Gender Identity Male 03/12/2021 3:16 PM STERILE TECH Sexual Orientation Straight 03/12/2021 3: 16 PM STERILE TECH Occupation Industry Job Start Date Job End Date Not on file Not on file Not on file Not on file documented as of this encounter Functional Status * RETIRED Are you deaf or do you have serious difficulty hearing Answer Date of Assessment Author Status No 11/02/2019 6:34 PM CDT Activ e * RETIRED Are you blind or do you have serious difficulty seeing, even when wearing glasses? Answer Date of Assessment Author Status No 11/02/2019 6:34 PM CDT Activ e * Do you have serious difficulty walking or climbing stairs? Answer Date of Assessment Author Status No 11/02/2019 6:34 PM CDT Olga Stevens R N Active * Do you have difficulty dressing or bathing? Answer Date of Assessment Author Status No 11/02/2019 6:34 PM CDT Olga Stevens R N Active * Because of a physical, mental, or emotional condition, do you have difficulty doing errands alone such as visiting a doctor's office or shopping? Answer Date of Assessment Author Status No 11/02/2019 6:34 PM CDT Olga Stevens R N Active documented as of this encounter Mental Status * Because of a physical, mental, or emotional condition, do you have serious difficulty concentrating, remembering, or making decisions? Answer Entry Date Author Status No 11/02/2019 6:34 PM CDT Olga Stevens R N Active documented in this encounter Plan of Treatment Not on file documented as of this encounter Visit Diagnoses Not on filedocumented in this encounter Additional Health Concerns Assessment Noted Time PHQ-9 Depression Total Score: 0 11/08/19 11:46 AM CDT documented as of this encounter Care Teams Medical Device Sales Relationship Specialty [place] [address] [facility] [address] [place] [address] PCP - General FAMILY PRACTICE 01/07/22 Miguel Crespo MD Medical Oncologist HEMATOLOGY/ONCOLOGY 11/12/19 documented as of this encounter
--- OUTSIDE RECORDS SUMMARY | 2024-11-17 14:39 | XMS_ITS | Clinical Summary ---
Author Organization [facility] Address [address] [place] [address] Care Team Providers Care Supervisor Particleboard Name Role Phone Benigno Solano MD Primary Care Provider [phone] Allergies Active Allergy Reactions Criticality Noted Date Comments Lisinopril Diarrhea Low 07/22/2016 Olmesartan Diarrhea Low 07/22/2016 Medications amLODIPine (NORVASC) 10 mg tablet Take 10 mg by mouth daily. 07/25/2022 Active aspirin (ECOTRIN EC) 81 mg Tablet, Delayed Release (E.C.) Take 81 mg by mouth. Active hydroCHLOROthiaz pérez 25 mg tablet Take 25 mg by mouth daily. 07/25/2022 Active multivitamins-mi nerals-lutein (CENTRUM SILVER) Tablet Take 1 Tablet by mouth daily. Active cholecalciferol, Vitamin D3, (VITAMIN D3) 25 mcg (1,000 unit) Capsule Take by mouth daily. Active omega-3 fatty acids-fish oil 300-1,000 mg Capsule Take by mouth daily. Active potassium chloride (KLOR-CON M10) 10 mEq Extended Release tablet Take 1 Tablet (10 mEq) by mouth 2 times daily. 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 Gender Identity Not on file Sexual Orientation Not on file Last Filed Vital Signs Vital Sign Reading Time Taken Comments Blood Pressure 124/86 11/18/2023 1:20 PM CDT Pulse 91 11/18/2023 1:18 PM CDT Temperature 36.7 C (98 F) 11/18/2023 1:18 PM CDT Respiratory Rate 16 11/18/2023 1:18 PM CDT Oxygen Saturation 97% 11/18/2023 1:18 PM CDT Inhaled Oxygen Concentration - - Weight 94.3 kg (207 lb 12.8 oz) 11/18/2023 1:18 PM CDT Height 174 cm (5' 8.5) 07/30/2022 1:32 PM CDT Body Mass Index 31.14 07/30/2022 1:32 PM CDT Plan of Treatment Upcoming Encounters Date Type Department Care Team (Late st Contact Info) Description 11/17/2024 2:45 PM CDT Office Visit [facility] Oncology and Hematology - [place] [address] [facility] [address] [place] [address] Semaj Hopson MD [address] [facility] [address] [place] [address] Health Maintenance Due Date Last Done Comments Pre-Diabetes and Diabetes Screening 1960 ZOSTER VACCINE (1 of 2) 1981 FIT-DNA Q 3 years 07/12/2007 FIT/FOBT Q 1 year 07/12/2007 Flex Sig/CT Colonography Q 5 years 07/12/2007 DTAP/TDAP/TD VACCINES (1 - Tdap) 05/10/2021 05/09/19 22 RSV VACCINE (60+ or ) (1 - Risk 60-74 years 1-dose series) 2022 [place] Prev entative Visit/Annual Wellness Visit 03/24/2024 05/09/2021 INFLUENZA VACCINE (#1) 2024 COLORECTAL SCREENING 03/28/2026 03/28/2016 Colorectal Cancer Screening 03/28/2026 Insurance [facility] [id number] Care Teams Supervisor Particleboard Relationship Specialty Start Date End Date Benigno Solano MD [address] [place] [address] PCP - General Family Practice 02/17/23
--- OUTSIDE RECORDS SUMMARY | 2024-11-17 14:39 | XMS_ITS | Clinical Summary ---
Author Organization [facility] Address [facility] [place] [address] Care Team Providers Care Road Crossing Guard Name Role Phone Miguel Crespo MD Unavailable [phone] Sophia Braun MD Primary Care Provider [phone] Allergies Active Allergy Reactions Criticality Noted Date Comments Lisinopril Diarrhea 07/22/2016 Olmesartan Diarrhea 07/22/2016 Medications Multiple Vitamin (MULTI-VITAMIN) tabletIndications:S tatus post partial colectomy Take 1 tablet by mouth daily. 30 tablet 2 2 Active aspirin EC (ECOTRIN) 81 MG tablet Take 81 mg by mouth. 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 Will hold off on labs this visit as had high bill last time. Needs quest labs Hyperlipidemia 07/22/2016 Assessment & Plan (01/01/2019 11:25 AM CDT): improved last labs. encuraged to con't healthy diet and increase exercise Resolved Problems Problem Noted Date Diagnosed Date Resolved Date Routine screening for STI (s exually transmitted infection) 01/16/2018 12/03/2019 Screening for prostate cancer 01/17/2017 12/03/2019 Encounter for preventive health examination 07/22/2016 12/03/2019 Immunizations Immunization Administration Dates Next Due Td (Tenivac) preservative free 05/09/2021 Td, Adsorbed, Preservative F ree, Adult Use, Lf Unspecified 05/09/2021 Family History Medical History Relation Comments Cancer Maternal Grandmother Brain cance r Heart Disease Mother Relation Status Comments Maternal Grandmother Mother Social History Tobacco Use Types Packs/Day Years Used Date Smoking Tobacco: Never Smokeless Tobacco: Never Tobacco Cessation:Counseling Given: No Alcohol Use Standard Drinks/Week Comments No 0 [...] CDT Gender Identity Male 03/12/2021 3:16 PM SUPERVISOR STAVE CUTTING Sexual Orientation Straight 03/12/2021 3: 16 PM SUPERVISOR STAVE CUTTING Occupation Industry Job Start Date Job End Date Not on file Not on file Not on file Not on file Last Filed Vital Signs Vital Sign Reading Time Taken Comments Blood Pressure 131/82 04/10/2022 12:52 PM SUPERVISOR STAVE CUTTING Pulse 81 04/10/2022 12:52 PM SUPERVISOR STAVE CUTTING Temperature 37.1 C (98.7 F) 04/10/2022 12:52 PM SUPERVISOR STAVE CUTTING Respiratory Rate 20 04/10/2022 12:52 PM SUPERVISOR STAVE CUTTING Oxygen Saturation 100% 04/10/2022 12:52 PM SUPERVISOR STAVE CUTTING Inhaled Oxygen Concentration - - Weight 93 kg (205 lb) 04/10/2022 12:52 PM SUPERVISOR STAVE CUTTING Height 175.3 cm (5' 9) 04/10/2022 12:52 PM SUPERVISOR STAVE CUTTING Body Mass Index 30.27 04/10/2022 12:52 PM SUPERVISOR STAVE CUTTING Plan of Treatment Health Maintenance Due Date Last Done Comments COVID-19 Vaccine (#1) 07/12/1965 Hepatitis C 1980 Pneumococcal Vaccine: 50+ Years (1 of 2 - PCV) 1981 Zoster Vaccines (1 of 2) 1981 DTaP, Tdap and Td Vaccines ( 1 - Tdap) 05/10/2021 05/09/2021, 05/09/2021 Annual Physical 05/09/2022 05/09/2021, 04/14/2020 RSV Immunization or 60+ Years (1 - Risk 60-74 years 1-dose series) 2022 Colorectal Cancer Screening FIT-DNA (3 Years) 03/01/2024 03/01/2021, 03/01/2021 PHQ-2 (Physician [place]) 03/24/2024 Colorectal Cancer Screening Colonoscopy (10 Years) Discontinued 03/28/2016 Meningococcal B Vaccine Aged Out No l onger eligible based on patient's age to complete this topic Meningococcal Vaccine Aged Out No roscoe silvia eligible based on patient's age to complete this topic RSV Immunizations Under 20 Months Aged Out No longer eligible based on patient's age to complete this topic Medical Devices Implanted Type Area Cutting Department Supervisor Device Identifier Shelf Expiration Date Model / Serial / Lot Port Implantable Infusion Powerport Isp Airguard Chronoflex Titanium 8fr 1 Lumen Attachable Catheter Intermediate Kit Open Suture Plug Sterile Latex Free - [id number] Implanted:Qty: 1 on 12/10/2019 by Luis Armando Valdez MD at [facility] Right: Chest [employer] - [employer] 06/21/2020 [id number] / / [id number] Procedures Procedure Name Priority Date/Time Associated Diagnosis Comments COLOGUARD (EXACT SCIENCE) Routine 03/01/2021 8:00 AM SUPERVISOR STAVE CUTTING Screening for colon cancer COLONOSCOPY Routine 03/28/2016 12:00 AM SUPERVISOR STAVE CUTTING from Last 3 Months or Most Recently Relevant to Health Maintenance Results * (ABNORMAL) COLOGUARD (EXACT SCIENCE) (03/01/2021 8:00 AM SUPERVISOR STAVE CUTTING) COLOGUARD RESULT Positive( A) Negative [employer] (CLIA #:[id number]) Comment: POSITIVE TEST RESULT. A positive Cologuard result should be followed with a colonoscopy or visual examination of the colon. The normal value (reference range) for this assay is negative. TEST DESCRIPTION: Composite algorithmic analysis of stool DNA-biomarkers with hemoglobin immunoassay. Quantitative values of individual biomarkers are not reportable and are not associated with individual biomarker result reference ranges. Cologuard is intended for colorectal cancer screening of adults of either sex, 45 years or older, who are at average-risk for colorectal cancer (CRC). Cologuard has been approved for use by the U.S. FDA. The performance of Cologuard was established in a cross sectional study of average-risk adults aged 50-84. Cologuard performance in patients ages 45 to 49 years was estimated by sub-group analysis of near-age groups. Colonoscopies performed for a positive result may find as the most clinically significant lesion: colorectal cancer [4.0%], advanced adenoma (including sessile serrated polyps greater than or equal to 1cm diameter) [20%] or non- advanced adenoma [31%]; or no colorectal neoplasia [45%]. These estimates are derived from a prospective cross-sectional screening study of 10,000 individuals at average risk for colorectal cancer who were screened with both Cologuard and colonoscopy. (Harleen Yates et al, N Engl J Med 2014;370(14):9145-3878.) Cologuard may produce a false negative or false positive result (no colorectal cancer or precancerous polyp present at colonoscopy follow up). A negative Cologuard test result does not guarantee the absence of CRC or advanced adenoma (pre-cancer). The current Cologuard screening interval is every 3 years. ([place] [employer] Society and U.S. Multi-Society Task Force). Cologuard performance data in a 10,000 patient pivotal study using colonoscopy as the reference method can be accessed at the following location: www.OptiNose.com/results. Additional description of the Cologuard test process, warnings and precautions can be found at www.cologuard.com. STOOL STOOL SPECIMEN / Unknown 03/01/2021 8:00 AM SUPERVISOR STAVE CUTTING 03/02/2021 9:23 AM SUPERVISOR STAVE CUTTING Rhea Roper METAL BED ASSEMBLER BODY FLUIDS AND STOOLS ORDERABLE S Final Result Performing Organization Address [facility] Co de Phone Number [employer] ([employer] [address]) [address] [place] [address], [employer] (CLIA #:[id number]) [address] [place] [place] [address] * Colonoscopy (03/28/2016 12:00 AM SUPERVISOR STAVE CUTTING) 03/28/2016 03/28/2016 Narrative [employer] TO EPIC CONVERSION - 03/28/2016 12:00 AM SUPERVISOR STAVE CUTTING Documented hx of procedure Procedure Note Md Generic ConversionMD - 01/25/2018 Documented hx of procedure us Generic Conversion Md POWELL GI PROCEDURE ORDERABLES Final Result Performing Organization Address [facility] Co de Phone Number [employer] TO EPIC CONVERSION from Last 3 Months or Most Recently Relevant to Health Maintenance Insurance MEDICAID Advance Directives * Full Code (Latest Code Status on File) Date Activated Date Inactivated Comments 10/22/2019 6:29 PM 11/03/2019 9:[address]ing Guard Relationship Specialty [place] [address] [place] [address] PCP - General FAMILY PRACTICE 01/07/22 Miguel Crespo MD Medical Oncologist HEMATOLOGY/ONCOLOGY 11/12/19
--- OUTSIDE RECORDS SUMMARY | 2024-11-17 14:39 | XMS_ITS | Encounter Summary ---
Author Organization [facility] Address [address] [place] [address] Care Team Providers Care Tinning Machine Set Up Operator Name Role Phone Miguel Crespo MD Unavailable [phone] Sophia Braun MD Primary Care Provider [phone] Encounter Details Date Type Department Care Team (Late st Contact Info) Description 10/28/2022 [employer] Message Enc [facility] Family & Internal Medicine [address] [address] [facility] Provider Due for follow up appt Social History Tobacco Use [...] CDT Gender Identity Male 03/12/2021 3:16 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
--- OUTSIDE RECORDS SUMMARY | 2024-11-17 14:39 | XMS_ITS | Encounter Summary ---
Author Organization [facility] [place] [facility] Address Critical access hospital[address] [place] [address] Care Team Providers Care Surg Physician Asst Name Role Phone Melvi Britton EQUITY ANALYST Primary Care Provider Miguel Price MD Unavailable [phone] Rhea Roper EQUITY ANALYST Primary Care Provider Sophia Akhtar MD Primary Care Provider [phone] Encounter Details Date Type Department Care Team (Late st Contact Info) Description 10/15/2019 Prep for Procedure [facility] [address] [place], [place] [id number] Luis Armando Valdez MD [address] [place] [address] [id number] Social History Tobacco Use Types Packs/Day Years Used Date Smoking Tobacco: Never Smokeless Tobacco: Never Alcohol Use Standard Drinks/Week Comments No 0 (1 standard drink = 0.6 oz pur e alcohol) AUDIT-C Answer Date Recorded Frequency of Alcohol Consumption Never 07/10/2018 Average Number of Drinks Not on file 019 Frequency of Binge Drinking Not on file 06/22 PHQ-2 Answer Date Recorded PHQ-2 Score 0 07/09/2019 Sex and Gender Information Value Date Recorded Sex Assigned at Not on file Legal Sex Male 7:03 PM CDT Gender Identity Male 03/12/2021 3:16 PM BRANCH SERVICES MANAGER Sexual Orientation Straight 03/12/2021 3: 16 PM BRANCH SERVICES MANAGER Occupation Industry Job Start Date Job End Date Not on file Not on file Not on file Not on file COVID-19 Exposure Response Date Recorded In the last month, have you been in contact with someone who was confirmed or suspected to have Coronavirus / COVID-19? No / Unsure 10/18/2019 9:51 AM CDT documented as of this encounter Plan of Treatment Not on file documented as of this encounter Results * PRE-SURGICAL/PRE-PROCEDURE CORONAVIRUS (COVID 19) (10/18/2019 10:04 AM CDT) CORONAVIRUS SARS COV 2 PCR (RESP) NOT DETECTED NOT DETECTED 10/19/2019 10:28 PM CDT [facility] Comment: A Not Detected (negative) test result for this test means that SARS- CoV-2 RNA was not present in the specimen above the limit of detection. A negative result does not rule out the possibility of COVID-19 and should not be used as the sole basis for treatment or patient management decisions. If COVID-19 is still suspected, based on exposure history together with other clinical findings, re-testing should be considered in consultation with public health authorities. Laboratory test results should always be considered in the context of clinical observations and epidemiological data in making a final diagnosis and patient management decisions. Please review the Fact Sheets and FDA authorized labeling available for health care providers and patients using the following websites: https://www.WikiMart.ru.[employer]/home/Covid-19/HCP/QuestIVD/fact- sheet.html https://www.WikiMart.ru.com/home/Covid-19/Patients/ QuestIVD/fact-sheet.html This test has been authorized by the FDA under an Emergency Use Authorization (EUA) for use by authorized laboratories. Due to the current public health emergency, [facility] is receiving a high volume of samples from a wide variety of swabs and media for COVID-19 testing. In order to serve patients during this public health crisis, samples from appropriate clinical sources are being tested. Negative test results derived from specimens received in non-commercially manufactured viral collection and transport media, or in media and sample collection kits not yet authorized by FDA for COVID-19 testing should be cautiously evaluated and the patient potentially subjected to extra precautions such as additional clinical monitoring, including collection of an additional specimen. Methodology: Nucleic Acid Amplification Test (NAAT) includes PCR or TMA Additional information about COVID-19 can be found at the [facility] website: www.OmniGuide/Covid19. Test performed at [facility] [address] [address] Director: KISHORE PARIS DO,MPH NASOPHARYNGEAL SWAB / Unknown 10/18/2019 10:04 AM CDT us Luis Armando Valdez MD MICROBIOLOGY - GENERAL ORDER GURPREET Final Result [facility] [address] [place] [address], documented in this encounter Visit Diagnoses Diagnosis Preop testing- Primary Preoperative examination, unspecified documented in this encounter Additional Health Concerns Infection Onset Date Last Indicated Resolved Time COVID-19 Rule Out 10/18/2019 10/18/2019 10/19/2019 10:28 PM CDT COVID-19 Rule Out 12/07/2019 12/07/2019 12/08/2019 6:45 PM CDT COVID-19 Rule Out 04/04/2020 04/04/2020 04/05/2020 6:26 PM BRANCH SERVICES MANAGER documented as of this encounter Care Teams Surg Physician Asst Relationship Specialty Start Date End Date Melvi Britton NP PCP - General NURSE PRACTITIONER 07/09/19 01/30/21 Rhea Roper NP PCP - General NURSE PRACTITIONER 01/31/21 01/06/22 [place] [address] [facility] [address] [place] [address] PCP - General FAMILY PRACTICE 01/07/22 Miguel Crespo MD Medical Oncologist HEMATOLOGY/ONCOLOGY 11/12/19 documented as of this encounter
--- OUTSIDE RECORDS SUMMARY | 2024-11-17 14:39 | XMS_ITS | Encounter Summary ---
Author Organization [facility] Address [facility] [place] [address] Care Team Providers Care Law Writer Name Role Phone Melvi Britton TOOL AND DIE ENGINEER Primary Care Provider UnaMiguel Alves MD Unavailable [phone] Rhea Roper TOOL AND DIE ENGINEER Primary Care Provider UnavailSophia Washington MD Primary Care Provider [phone] Encounter Details Date Type Department Care Team (Late st Contact Info) Description 01/17/2021 [facility] Patient Accounts [address] [place], [place] [id number] [facility] Provider Address Social History Tobacco Use Types Packs/Day Years [...] CDT Gender Identity Male 03/12/2021 3:16 PM SENIOR CAPITAL MARKETS SPECIALIST Sexual Orientation Straight 03/12/2021 3: 16 PM SENIOR CAPITAL MARKETS SPECIALIST Occupation Industry Job Start Date Job End [...] Assessment Author Status No 11/02/2019 6:34 PM CDOlga Rivera R N Active documented as of this [...] Diagnoses Not on filedocumented in this encounter Care Teams Law Writer Relationship Specialty Start Date End Date Melvi Britton NP PCP - General NURSE PRACTITIONER 07/09/19 01/30/21 Rhea Roper NP PCP - General NURSE PRACTITIONER 01/31/21 01/06/22 [place] [address] [facility] [address] [place] [address] PCP - General FAMILY PRACTICE 01/07/22 Miguel Crespo MD Medical Oncologist HEMATOLOGY/ONCOLOGY 11/12/19 documented as of this encounter
--- OUTSIDE RECORDS SUMMARY | 2024-11-17 14:39 | XMS_ITS | Clinical Summary ---
Author Organization [facility] Address [address] [place] [address] Phone Care Team Providers Care Side Panel Hanger Name Role Phone Luis Armando Valdez MD Primary Care Provider [phone] Allergies Active Allergy Reactions Criticality Noted Date Comments Lisinopril Diarrhea 07/22/2016 Olmesartan Diarrhea 07/22/2016 Medications amLODIPine (NORVASC) 10 MG Tablet Take 1 tablet by mouth once daily 10/15/2019 Active hydroCHLOROthia zide 50 MG Tablet Take 1 tablet by mouth once daily 10/15/2019 Active simvastatin (ZOCOR) 40 MG Tablet Take 1 tablet by mouth nightly 10/15/2019 Active HYDROcodone-huy taminophen (NORCO) 5-325 MG Tablet Take 1 Tab by mouth. 12/10/2019 Active potassium chloride SA (KLORCON M) 20 MEQ Tablet Controlled Release Take 1 Tab by mouth daily. 4 Tab 02/28/2020 Active loperamide (Imodium A-D) 2 MG Capsule Take 1 Cap by mouth 4 times daily as needed for Diarrhea. 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 Not on file Not on file Last Filed Vital Signs Vital Sign Reading Time Taken Comments Blood Pressure 116/70 03/06/2020 9:10 AM VARNISH DIPPER Pulse 91 03/06/2020 9:10 AM VARNISH DIPPER Temperature 36.4 C (97.6 F) 02/14/2020 11:18 AM VARNISH DIPPER Respiratory Rate 19 03/06/2020 9:10 AM VARNISH DIPPER Oxygen Saturation 97% 03/06/2020 9:10 AM VARNISH DIPPER Inhaled Oxygen Concentration - - Weight 75.8 kg (167 lb) 03/06/2020 9:10 AM VARNISH DIPPER Height 174 cm (5' 8.5) 03/06/2020 9:10 AM VARNISH DIPPER Body Mass Index 25.02 03/06/2020 9:10 AM VARNISH DIPPER Plan of Treatment Health Maintenance Due Date Last Done Comments TdaP Immunization 1962 SARS-COV-2 Immunization (#1) 07/12/1967 Pneumococcal Immunization (5 0+ years) (1 of 2 - PCV) 1981 Zoster Immunization (1 of 2) 1981 Cologuard 07/12/2007 Colonoscopy 07/12/2007 Colorectal Cancer Screening 07/12/2007 Immunochemical Fecal Occult Blood 07/12/2007 Influenza Immunization (#1) 2024 Respiratory Syncytial Virus (RSV) Immunization (Adult) (1 - 1-dose 75+ series) 2037 Hepatitis C Virus (HCV) Screening Completed 020 Hepatitis B Immunization Aged Out No longer eligible based on patient's age to complete this topic Human Papillomavirus (HPV) Immunization Aged Out No longer eligible b ased on patient's age to complete this topic Meningococcal Immunization (ACWY) Aged Out No longer eligible based on patient's age to complete this topic Rotavirus Immunization Aged Out No lo nger eligible based on patient's age to complete this topic Procedures Procedure Name Priority Date/Time Associated Diagnosis Comments HEPATITIS C ANTIBODY Routine 11/10/2019 10:39 AM CDT from Last 3 Months or Most Recently Relevant to Health Maintenance Results * HEPATITIS C ANTIBODY (11/10/2019 10:39 AM CDT) HCV AB 0.1 0.0 - 0.9 S/CO RATIO [facility] COMMENT: COMMENT [facility] Comment: NON REACTIVE HCV ANTIBODY SCREEN IS CONSISTENT WITH NO HCV INFECTION, UNLESS RECENT INFECTION IS SUSPECTED OR OTHER EVIDENCE EXISTS TO INDICATE HCV INFECTION. 11/10/2019 10:3 9 AM CDT Narrative [facility] - 11/11/2019 8:07 AM CDT TESTING PERFORMED AT: [] [address], [address], PHONE: [phone], CYBER SECURITY CONSULTANT: AMANDO FANG, PHD Miguel Crespo MD CHEMISTRY ORDERABLES Final Result Performing Organization Address City/State/[facility] Co de Phone Number [facility] from Last 3 Months or Most Recently Relevant to Health Maintenance Insurance [address] [place] [phone] [facility] Care Teams Side Panel Hanger Relationship Specialty Start Date End Date Luis Armando Valdez MD PCP - General Colon & Rectal Surgery 11/02/19
--- OUTSIDE RECORDS SUMMARY | 2024-11-17 14:39 | XMS_ITS | Encounter Summary ---
Author Organization [facility] Address [address] [place] [address] Phone Care Team Providers Care Lead Network Engineer Name Role Phone Luis Armando Valdez MD Primary Care Provider [phone] Encounter Details Date Type Department Care Team (Late st Contact Info) Description 02/02/2020 Telephone [facility] [address] [place] [address] Miguel Crespo MD [address] [place] [address] Social History Tobacco Use Types [...] 10/22 PHQ-2 Answer Date Recorded PHQ-2 Score 1 02/02/2020 Education Answer Date Recorded What is the highest level of school you have completed or the highest degree you have received? 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 No / Unsure 02/02/2020 8:06 AM SENIOR MARKETING ASSOCIATE documented as of this encounter Miscellaneous Notes * Telephone Encounter - Casie Santos APN, CNP - 02/08/2020 8:34 AM SENIOR MARKETING ASSOCIATE Can you please call over to Dr. Mata office and find out. Dr. Crespo spoke with Dr. Yeager last week and they were suppose to be contacting him for an appointment. Thanks. OR MARKETING ASSOCIATE * Telephone Encounter - Casie Santos APN, CNP - 02/08/2020 8:34 AM SENIOR MARKETING ASSOCIATE Images from the original note were not included. Hyun Duncan You 17 hours ago (2:47 PM) I talked with Tonja and he said he hasn't heard from Dr. Yeager's office. OR MARKETING ASSOCIATE * Telephone Encounter - Casie Santos APN, CNP - 02/07/2020 1:44 PM SENIOR MARKETING ASSOCIATE Thanks. Does patient have an appointment to see Dr. Yeager this week? Dr. Yeager's office was suppose to call him and set this up. OR MARKETING ASSOCIATE * Telephone Encounter - Hyun Duncan - 02/02/2020 1:50 PM CST Mr. Briones called to say that he has an appointment with Dr. Tanner on 02/10 @12:30. OR MARKETING ASSOCIATE documented in this encounter Plan of Treatment Not on file documented as of this encounter Visit Diagnoses Not on filedocumented in this encounter Additional Health Concerns Assessment Noted Time PHQ-9 Depression Total Score: 1 02/02/20 20 8:17 AM SENIOR MARKETING ASSOCIATE documented as of this encounter Care Teams Lead Network Engineer Relationship Specialty Start Date End Date Luis Armando Valdez MD PCP - General Colon & Rectal Surgery 11/02/19 documented as of this encounter
--- OUTSIDE RECORDS SUMMARY | 2024-11-17 14:39 | XMS_ITS | Encounter Summary ---
Author Organization [facility] Address [facility] [place] [address] Care Team Providers Care Cascara Bark Cutter Name Role Phone Melvi Britton TABLET MACHINE OPERATOR Primary Care Provider Miguel Price MD Unavailable [phone] Rhea Roper TABLET MACHINE OPERATOR Primary Care Provider Sophia Akhtar MD Primary Care Provider [phone] Encounter Details Date Type Department Care Team (Late st Contact Info) Description 12/06/2019 Prep for Procedure [facility] Day Services [address] [place], [place] [phone] Luis Armando Valdez MD [address] [place] [address] [id number] Social History Tobacco Use Types Packs/Day Years [...] CDT Gender Identity Male 03/12/2021 3:16 PM PROGRAMMING ENGINEER Sexual Orientation Straight 03/12/2021 3: 16 PM PROGRAMMING ENGINEER Occupation Industry Job Start Date Job End Date Not on file Not on file Not on file Not on file COVID-19 Exposure Response Date Recorded In the last month, have you been in contact with someone who was confirmed or suspected to have Coronavirus / COVID-19? No / Unsure 12/07/2019 9:54 AM CDT documented as of this encounter Functional Status [...] encounter Results * PRE-SURGICAL/PRE-PROCEDURE CORONAVIRUS (COVID 19) (04/04/2020 11:35 AM PROGRAMMING ENGINEER) Pathologist [facility] CORONAVIRUS SARS COV 2 PCR (RESP) NOT DETECTED NOT DETECTED 04/05/2020 6:26 PM PROGRAMMING ENGINEER [facility] Comment: A Not Detected (negative) test [...] providers and patients using the following websites: https://www.WebNotes.Canpages/home/Covid-19/HCP/QuestIVD/fact- sheet.html https://www.WebNotes.Canpages/home/Covid-19/Patients/ QuestIVD/fact-sheet.html This test has been authorized by the FDA under an Emergency Use Authorization (EUA) for use by authorized laboratories. Due to the current public health emergency, [facility] is receiving a high volume of samples [...] Methodology: Nucleic Acid Amplification Test (NAAT) includes RT-PCR or TMA Additional information about COVID-19 can be found at the [employer] website: www.Medrio/Covid19. Test performed at [facility] [address] [address] [place] [address] Director: KISHORE PARIS DO,MPH FIRST TEST NO 04/04/2020 11:30 AM [facility] EMPLOYED IN HEALTHCARE UNKNOWN 04/04/2020 11:30 AM [facility] SYMPTOMATIC DEFINED BY CDC NO 04/04/2020 11:30 AM [facility] DATE OF SYMPTOM ONSET UNKNOWN 04/04/2020 12:00 PM [facility] HOSPITALIZATION STATUS NO 04/04/2020 11:30 AM [facility] PATIENT IN ICU NO 04/04/2020 11:30 AM [facility] UNKNOWN 04/04/2020 11:30 AM PROGRAMMING ENGINEER [facility] NO 04/04/2020 12:00 PM PROGRAMMING ENGINEER [facility] PATIENT'S RACE PATIENT DECLINED 03/24 11:30 AM PROGRAMMING ENGINEER [facility] ETHNICITY PATIENT DECLINED 04/04/19 21 11:30 AM PROGRAMMING ENGINEER [facility] SOURCE (QST) NASOPHARYNGEAL SWAB 04/04/2020 11:30 AM PROGRAMMING ENGINEER [facility] NASOPHARYNGEAL SWAB / Unknown 04/04/2020 11:35 AM PROGRAMMING ENGINEER Luis Armando Valdez MD MICROBIOLOGY - GENERAL ORDER GURPREET Final Result [facility] [address] [place] [address], [facility] [address] [place] [address], * PRE-SURGICAL/PRE-PROCEDURE CORONAVIRUS (COVID 19) (12/07/2019 10:49 AM CDT) CORONAVIRUS SARS COV 2 PCR (RESP) NOT DETECTED NOT DETECTED 12/08/2019 6:45 PM CDT [facility] Comment: A Not Detected (negative) test [...] providers and patients using the following websites: https://www.WebNotes.com/home/Covid-19/HCP/NAAT/fact-sheet2 https://www.WebNotes.Canpages/home/Covid-19/Patients/NAAT/ fact-sheet2 This test has been authorized by the FDA under an Emergency Use Authorization (EUA) for use by authorized laboratories. Due to the current public health emergency, [facility] is receiving a high volume of samples [...] about COVID-19 can be found at the [employer] website: www.Mobile2Me.Canpages/Covid19. Test performed at [facility] [address] [address] Director: KISHORE PARIS DO,MPH FIRST TEST NO 12/07/2019 9:54 AM CDT [facility] EMPLOYED IN HEALTHCARE NO 12/07/2019 9:54 AM CDT [facility] SYMPTOMATIC DEFINED BY CDC NO 12/07/2019 9:54 AM CDT [facility] DATE OF SYMPTOM ONSET UNKNOWN 12/07/2019 3:49 PM CDT [facility] HOSPITALIZATION STATUS NO 12/07/2019 9:54 AM CDT [facility] PATIENT IN ICU NO 12/07/2019 9:54 AM CDT [facility] RESIDENT OF [facility] NO 12/07/2019 9:54 AM CDT [facility] NO 12/07/2019 3:49 PM CDT [facility] PATIENT'S RACE PATIENT DECLINED 11/22 9:54 AM CDT [facility] ETHNICITY PATIENT DECLINED 09/15/20 20 9:54 AM CDT [facility] SOURCE (QST) NASOPHARYNGEAL SWAB 12/07/2019 9:54 AM CDT [facility] NASOPHARYNGEAL SWAB / Unknown 12/07/2019 10:49 AM CDT Luis Armando Valdez MD MICROBIOLOGY - GENERAL ORDER GURPREET Final Result [facility] [address] [place] [address], [place] [phone] [place] [address], * MRSA SCREENING (12/07/2019 10:48 AM CDT) SPEC DESCRIPTION NASAL 12/07/2019 9:54 AM CDT [facility] SPECIAL REQUESTS NO SPECIAL REQUEST 12/07/2019 9:54 AM CDT [facility] CULTURE RESULT NO METHICILLIN RESISTANT STAPH AUREUS ISOLATED 12/08/2019 2:31 PM CDT [facility] SPECIMEN FROM INTERNAL NOSE / Unknown 12/07/2019 10:48 AM CDT 12/07/2019 10:49 AM CDT Luis Armando Valdez MD MICROBIOLOGY - GENERAL ORDER GURPREET Final Result [facility] [address] [place] [address], [place] [phone] documented in this encounter Visit Diagnoses Diagnosis Preop testing- Primary Preoperative examination, unspecified Preoperative clearance Preoperative examination, unspecified documented in this encounter Additional Health Concerns Infection Onset Date Last Indicated Resolved Time COVID-19 Rule Out 12/07/2019 12/07/2019 12/08/2019 6:45 PM CDT COVID-19 Rule Out 04/04/2020 04/04/2020 04/05/2020 6:26 PM PROGRAMMING ENGINEER documented as of this encounter Care Teams Cascara Bark Cutter Relationship Specialty Start Date End Date Melvi Britton NP PCP - General NURSE PRACTITIONER 07/09/19 01/30/21 Rhea Roper, LE PCP - General NURSE PRACTITIONER 01/31/21 01/06/22 [place] [address] [facility]. [address] [address] PCP - General FAMILY PRACTICE 01/07/22 Miguel Crespo MD Medical Oncologist HEMATOLOGY/ONCOLOGY 11/12/19 documented as of this encounter
--- OUTSIDE RECORDS SUMMARY | 2024-11-17 14:39 | XMS_ITS | Encounter Summary ---
Author Organization [facility] Address [facility] [place] [address] Care Team Providers Care Strategic Solutions Consultant Name Role Phone Miguel Crespo MD Unavailable [phone] Miguel Ross MD Unavailable [phone] Michael Duran MD Unavailable [phone] Patrice Jackson MD Unavailable [phone] Jl Cooper MD Unavailable [phone] Mulu Cardenas PharmD Unavailable Unavaila Jimmy Moura PharmD Unavailable Unavailab Bambi Emery RN Unavailable Unavailable Rosi Saldana RN Unavailable Unavailab Mely Carlos Unavailable Nina Joanna Billingsley SOAP CHIPPER-STUDIO CONTROL OPERATOR Unavailable [phone] Concha Bruner SOAP CHIPPER-STUDIO CONTROL OPERATOR Unavailable Leslee Rodriguez RN Unavailable Unavailable Naida Iverson RN Unavailable Unavailable Patrizia Solares Unavailable Unavailable Encounter Details Date Type Department Care Team (Late st Contact Info) Description 01/17/2020 Telephone [facility] [address] [place] [address] [place] Yanez, RN Social History Tobacco Use Types Packs/Day Years Used Date Smoking Tobacco: Never Assessed Sex and Gender Information Value Date Recorded Sex Assigned at Not on file Legal Sex Male 1:59 PM CDT Gender Identity Not on file Sexual Orientation Not on file COVID-19 Exposure Response Date Recorded In the last month, have you been in contact with someone who was confirmed or suspected to have Coronavirus / COVID-19? Unable to assess 01/03/2020 3:22 PM CDT documented as of this encounter Plan of Treatment Not on file documented as of this encounter Visit Diagnoses Not on filedocumented in this encounter Care Teams Strategic Solutions Consultant Relationship Specialty Start Date End Date Miguel Crespo MD Hematology and Oncology 12/02/19 Miguel Ross MD Hematology and Oncology 12/02/19 Michael Duran MD [address] OF HEMATOLOGY & [place] [address] Hematology and Oncology 12/02/19 Patrice Jackson MD [address] DIV OF HEMATOLOGY & [place] [address] Hematology and Oncology 12/02/19 Jl Cooper MD [address] OF HEMATOLOGY & [place] [address] Hematology and Oncology 12/02/19 Mulu Cardenas, PharmD 12/02/19 Jimmy Medina PharmD Pharmacist 12/02/19 Bambi Juan, RN 12/02/19 Rosi Saldana RN 12/02/19 Mely Monahan 12/02/19 Joanna Cook APRN-STUDIO CONTROL OPERATOR [address] OF HEMATOLOGY & [place] [address] Nurse Practitioner 12/02/19 Concha Bruner APRN-UMAIR [address] [facility] OF HEMATOLOGY [place] [address] Nurse Practitioner Family 12/02/19 Leslee Rodriguez, RN 12/02/19 Naida Iverson, RN Registered Nurse 12/02/19 Patrizia Solares CSW Tube Puller 12/02/19 documented as of this encounter
--- OUTSIDE RECORDS SUMMARY | 2024-11-17 14:39 | XMS_ITS ---
Author Organization [facility] Address [address] [facility] [place] [place] [address] Care Team Providers Care Dupligraph Operator Name Role Phone Miguel Crespo MD Unavailable [phone] Miguel Ross MD Unavailable [phone] Michael Duran MD Unavailable [phone] Patrice Jackson MD Unavailable Jl Cooper MD Unavailable [phone] Mulu Cardenas PharmD Unavailable Unavaila Jimmy Moura PharmD Unavailable Unavailab Bambi Emery RN Unavailable Unavailable Rosi Saldana RN Unavailable Unavailab Mely Carlos Unavailable Nina vailable Joanna Cook APRN-CEMENT PRODUCTION PLANT OPERATOR Unavailable [phone] Concha Bruner APRN-CEMENT PRODUCTION PLANT OPERATOR Unavailable [phone] Leslee Rodriguez RN Unavailable Unavailable Naida Iverson RN Unavailable Unavailable Patrizia Solares Unavailable Unavailable Active Problems Problem Noted Date Diagnosed Date 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 Past Treatment and Therapy Plans No past plan information found. Lifetime Dose Tracking * Chemical Lifetime Dose Automatic Entry Manual Entr y Dose Length Product 1,188.6 mGy-cm 1,188.6 mGy-cm 0 mG y-cm
--- OUTSIDE RECORDS SUMMARY | 2024-11-17 14:39 | XMS_ITS | Clinical Summary ---
Author Organization [facility] Address [address] [facility] [place] [address] Care Team Providers Care Rigging Engineer Name Role Phone Miguel Crespo MD Unavailable Miguel Ross MD Unavailable [phone] Michael Duran MD Unavailable [phone] Patrice Jackson MD Unavailable [phone] Jl Cooper MD Unavailable [phone] Mulu Cardenas PharmD Unavailable Unavaila Jimmy Moura PharmD Unavailable Unavailab Bambi Emery RN Unavailable Unavailable Rosi Saldana RN Unavailable Unavailab Mely Carlos Unavailable Nina Joanna Billingsley TROUT FARMER-BAGGAGEMAN Unavailable [phone] Concha Bruner TROUT FARMER-BAGGAGEMAN Unavailable [phone] Leslee Rodriguez RN Unavailable Unavailable Naida Iverson RN Unavailable Unavailable Patrizia Solares Unavailable Unavailable Source Comments [facility],non-owned Affiliates and Associated Physician Practices is amultiple site organization consisting of ambulatory clinics and hospital sitesin [place], [place], [place] and [place]. This disclosure is being madepursuant to the Care Everywhere program and may not contain all information available regarding this patient. Last updated 17.[facility] Allergies Active Allergy Reactions Criticality Noted Date Comments Lisinopril Diarrhea 07/22/2016 Olmesartan Diarrhea 07/22/2016 Medications * Be aware that medications may not be up to date on this document. Alwaysverify current medications with the patient. amLODIPine (NORVASC) 10 MG tablet Take 10 mg by mouth once daily 01/24/2020 Active aspirin EC (ECOTRIN) 81 MG tablet Take 81 mg by mouth once daily Active hydroCHLOROthiaz pérez (HYDRODIURIL) 50 MG tablet Take 50 mg by mouth once daily 10/15/2019 Active HYDROcodone-acet aminophen (NORCO) 5-325 MG tablet Take 1 tablet by mouth 12/10/2019 Active ondansetron (ZOFRAN) 4 MG tablet TAKE 1 TABLET BY MOUTH EVERY 6 HOURS NEEDED FOR NAUSEA 12/07/2019 Active potassium chloride ER (KLOR-CON M) 20 MEQ tablet Take 20 mEq by mouth once daily 12/13/2019 Active simvastatin (ZOCOR) 40 MG tablet Take 40 mg by mouth once daily 10/15/2019 Active prochlorperazine (COMPAZINE) 10 MG tablet TAKE 1 TABLET BY MOUTH EVERY 4 HOURS NEEDED FOR NAUSEA 12/06/2019 Active Active Problems Problem Noted Date Diagnosed Date 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 Pre-transplant evaluation for stem cell transpla nt 12/31/2019 Social History Tobacco Use Types Packs/Day Years Used Date Smoking Tobacco: Never Smokeless Tobacco: Current Alcohol Use Standard Drinks/Week Comments Not Currently 0 (1 standard drink = 0.6 oz pur e alcohol) Sex and Gender Information Value Date Recorded Sex Assigned at Not on file Legal Sex Male 1:59 PM CDT Gender Identity Not on file Sexual Orientation Not on file Last Filed Vital Signs Vital Sign Reading Time Taken Comments Blood Pressure 134/95 02/11/2020 4:15 PM ALLERGIST/IMMUNOLOGIST PHYSICIAN Pulse 82 02/11/2020 4:15 PM ALLERGIST/IMMUNOLOGIST PHYSICIAN Temperature 36.5 C (97.7 F) 02/11/2020 3:54 PM ALLERGIST/IMMUNOLOGIST PHYSICIAN Respiratory Rate 12 02/11/2020 4:15 PM ALLERGIST/IMMUNOLOGIST PHYSICIAN Oxygen Saturation 97% 02/11/2020 4:15 PM ALLERGIST/IMMUNOLOGIST PHYSICIAN Inhaled Oxygen Concentration - - Weight 79.6 kg (175 lb 7 oz) 02/11/2020 1:00 PM ALLERGIST/IMMUNOLOGIST PHYSICIAN Height 154.4 cm (5' 0.8) 12/31/2019 10:25 AM CD T Body Mass Index 33.37 12/31/2019 10:25 AM CDT Plan of Treatment Health Maintenance Due Date Last Done Comments COLOGUARD (AGES 45-75) - COLON CA SCREENING 1960 CT COLONOGRAPHY - COLON CA SCREENING 1962 FIT - COLON CA SCREENING 1962 FLEX SIG - COLON CA SCREENING 1962 HEPATITIS C SCREENING 07/06/1980 DTAP/TDAP/TD VACCINES (1 - Tdap) 1981 PNEUMOCOCCAL VACCINE 50+ (1 of 1 - PCV) 2012 ZOSTER VACCINE (1 of 2) 2012 SCREENING FOR DIABETES 03/06/2023 0, 02/28/2020, 02/14/2020, Additional history exists COVID-19 VACCINE ( - season) 2023 DEPRESSION SCREENING 03/24/2024 INFLUENZA VACCINE (#1) 2024 COLON MONITORING 02/10/2030 02/11/2020 COLONOSCOPY - COLON CA SCREENING 02/10/2030 02/11/2020 Colorectal Cancer Screening 02/10/2030 Respiratory Syncytial Virus (RSV) Vaccine Pt: or over 60 yrs (1 - 1-dose 75+ series) 2037 HIV SCREENING Completed 12/31/2019 HEPATITIS B VACCINE Aged Out No longe r eligible based on patient's age to complete this topic HIB VACCINE Aged Out No longer eligi ble based on patient's age to complete this topic HPV VACCINE Aged Out No longer eligi ble based on patient's age to complete this topic MENINGOCOCCAL (Group B) VACCINE SHARED DECISION-MAKING Aged Out No longer eligible based on patient's age to complete this topic MENINGOCOCCAL GROUPS A/C/Y/W VACCINE Aged Out No longer eligible based on patient's age to complete this topic Procedures Procedure Name Priority Date/Time Associated Diagnosis Comments COMPREHENSIVE METABOLIC PANEL Routine 12/31/2019 12:45 PM CDT Pre-transplant evaluation for stem cell transplant HIV-1 HIV-2 ANTIGEN/ANTIBODY Routine 12/31/2019 12:45 PM CDT Pre-transplant evaluation for stem cell transplant from Last 3 Months or Most Recently Relevant to Health Maintenance Results * HIV-1 HIV-2 ANTIGEN/ANTIBODY (12/31/2019 12:45 PM CDT) [facility] HIV Antigen/Antibod y 1 & 2 Non-reacti ve Non-react lester 12/31/2019 2:05 PM [facility] Comment:Neither HIV-1 p24 An tigen nor HIV-1/HIV-2 Antibodies are detected. Blood BLOOD SPECIMEN / Unknown Venipuncture / Unknown 12/31/2019 12:45 PM CDT 12/31/2019 1:16 PM CDT us Joanna Cook [facility] - HEMATOLOGY ORDERABLE S Final Result [facility] [address] [place] [id number], [facility] [phone] * (ABNORMAL) COMPREHENSIVE METABOLIC PANEL (12/31/2019 12:45 PM CDT) [facility] BUN 8 7 - 26 mg/dL 12/31/2019 1:47 PM [facility] Creatinine 0.9 0.6 - 1.2 mg/dL 12/31/2019 1:47 PM [facility] Sodium 141 136 - 145 mmol/L 12/31/2019 1:47 PM [facility] Potassium 3.4(L) 3.5 - 4.5 mmol/L 12/31/2019 1:47 PM [facility] Chloride 102 98 - 107 mmol/L 12/31/2019 1:47 PM [facility] CO2 30(H) 22 - 29 mmol/L 12/31/2019 1:47 PM [facility] Glucose 105 70 - 115 mg/dL 12/31/2019 1:47 PM [facility] Calcium 9.3 8.4 - 10.2 mg/dL 12/31/2019 1:47 PM [facility] Protein Total 7.6 6.0 - 8.3 g/dL 12/31/2019 1:47 PM [facility] Albumin 3.8 3.4 - 5.0 g/dL 12/31/2019 1:47 PM [facility] Bilirubin Total 0.2 0.2 - 1.2 mg/dL 12/31/2019 1:47 PM [facility] Alkaline Phosphatase 137 40 - 150 Units/L 12/31/2019 1:47 PM [facility] ALT 17 0 - 55 Units/L 12/31/2019 1:47 PM [facility] AST 18 5 - 34 Units/L 12/31/2019 1:47 PM [facility] Anion Gap 12 8 - 18 12/31/2019 1:47 PM [facility] BUN/Creatinine Ratio 9 7 - 23 12/31/2019 1:47 PM [facility] Osmolality Calculated 291 270 - 300 mOsm/kg 12/31/2019 1:47 PM [facility] Albumin/Globulin Ratio 1.0(L) 1.1 - 2.3 12/31/2019 1:47 PM [facility] eGFR >60 >60 mL/min/1.7 3 m2 12/31/2019 1:47 PM [facility] Blood BLOOD SPECIMEN / Unknown Venipuncture / Unknown 12/31/2019 12:45 PM CDT 12/31/2019 1:17 PM T Joanna Cook [facility] - CHEMISTRY ORDERABLES Final Result Performing Organization Address [facility]/State/ZIP Co de Phone Number [facility] [address] [place] [address], [facility] [phone] from Last 3 Months or Most Recently Relevant to Health Maintenance Insurance [employer]M ANTHEM ANTHEM Care Teams Rigging Engineer Relationship Specialty Start Date End Date Miguel Crespo MD Hematology and Oncology 12/02/19 Miguel Ross MD Hematology and Oncology 12/02/19 Michael Duran MD [address] [place] [address] OF HEMATOLOGY [place] [address] Hematology and Oncology 12/02/19 Patrice Jackson MD [address] OF HEMATOLOGY & [place]ICAL [place] [address] Hematology and Oncology 12/02/19 Jl Cooper MD [address] OF HEMATOLOGY & [place]ICAL [place] [address] Hematology and Oncology 12/02/19 Mulu Cardenas, PharmD 12/02/19 Jimmy Medina, PharmD Pharmacist 12/02/19 Bambi Juan RN 12/02/19 Rosi Saldana RN 12/02/19 Mely Mnoahan 12/02/19 Joanna Cook [employer] [address] OF HEMATOLOGY & [place] [address] Nurse Practitioner 12/02/19 Concha Bruner [employer] [address] OF HEMATOLOGY & [place] [address] Nurse Practitioner Family 12/02/19 Leslee Rodriguez, RN 12/02/19 Naida Iverson, RN Registered Nurse 12/02/19 Patrizia Solares, WILBUR Deputy Probation Officer 12/02/19
[2024-11-17 14:58] LABS: Hematocrit 46.4 % (42.0-52.0); Hemoglobin 15.7 g/dL (14.0-18.0); Immature Granulocyte Percent A 0.2 % (0-0.5); Lymphocytes Absolute Auto 3.66 K/mm3 (0.9-3.2); Mean Corpuscular HGB Conc 33.8 g/dl (32-36); Mean Corpuscular Hemoglobin 27.5 pg (26-34); Mean Corpuscular Volume 81.4 fl (80-100); Nucleated Red Blood Cells Absolute Auto 0.000 K/mm3 (0.0-0.012); Nucleated Red Blood Cells Perc 0.0 % (0.0-0.2); Platelet Count Result 302 k/mm3 (150-375); Red Blood Count 5.70 M/mm3 (4.6-6.20); White Blood Count 8.5 K/mm3 (4.5-10.0)
[2024-11-17 15:03] LABS: Blood Urea Nitrogen 15 mg/dL (8-26); Carbon Dioxide 27 mmol/L (22-30); Chloride 103 mmol/L (98-109); Estimated Glomerular Filt Rate 51; Glucose 117 mg/dL (70-105); Ionized Calcium (POC) 1.18 mmol/L (1.11-1.31); Potassium 3.5 mmol/L (3.5-4.9); Sodium 140 mmol/L (138-146)
[2024-11-17 18:12] LABS: Alanine Aminotransferase 35 U/L (6-50); Albumin Level 4.5 g/dL (3.5-5.1); Alkaline Phosphatase 71 U/L (38-126); Anion Gap 10 mmol/L (4-12); Aspartate Amino Transferase 63 U/L (17-59); Bilirubin,Total 0.9 mg/dL (0.2-1.3); Blood Urea Nitrogen 15 mg/dL (9-20); Calcium 9.3 mg/dL (8.4-10.2); Carbon Dioxide 25 mmol/L (22-30); Chloride 103 mmol/L (98-107); Estimated Glomerular Filt Rate 59; Glucose 116 mg/dL (65-110); Potassium 3.6 mmol/L (3.4-5.0); Sodium 138 mmol/L (137-145); Total Protein 8.1 g/dL (6.3-8.2)
== END 2024-11-17 14:35 | disposition home or self-care (01) ==
LOC: ANHLAB 14:34
PROVIDERS: PCP Emergency Medicine; Visit Provider Internal Medicine Hematology & Oncology
DX: C84.9 Mature T/NK-cell lymphomas, unspecified (principal)
CPT/HCPCS: 36415; 80047; 80053; 83615; 85025